=== PATIENT | male | born 1960 | race Caucasian/White ===

== ENCOUNTER 2024-09-29 08:30 | Emergency (ER) | payer OTHER, SELFPAY ==
--- NOTE | ~2024-09-29 | CT_ITS ---
EXAMINATION: CT abdomen pelvis w con DATE: 09/29/2024 09:32 INDICATION: Left lower abdominal pain TECHNIQUE: Computed tomography (CT) of the abdomen and pelvis was performed without intravenous contr ast. Automated exposure control and iterative reconstruction technique were employed. The dose-length product was 251.48 mGy-cm. COMPARISON: None FINDINGS: 2.1 x 1.5 cm nodular opacity in the basilar right lower lobe along a band of discoid atelectasis and with significant degenerative volume loss in the right lower lobe which would favor round atelectasis over neoplasm. Additional linear discoid atelectasis in the left lower lobe and lingula. Heart size is normal. No pericardial or pleural effusion. Subcentimeter hepatic cyst along the gallbladder fossa . Gallbladder, spleen, pancreas, bilateral adrenal glands and kidneys are normal. Prominent diverticu losis along the transverse and descending colon with focal wall thickening and inflammatory stranding at the distal descending colon consistent with diverticulitis. Small bowel and appendix are normal. Prostatomegaly. Small bilateral inguinal hernias containing fat on the right and fat as well as a bul ge of the otherwise normal bladder on the left. No abscess or free intraperitoneal gas or fluid. No p athologically enlarged abdominal or pelvic lymphadenopathy. Focal fatty atrophy versus intramuscular lipoma at the distal right gluteus medius muscle belly. Mild lumbar and lower thoracic spondylosis. IMPRESSION: 1. Radiographic uncomplicated diverticulitis at the distal descending colon. 2. 2.1 x 1.5 cm nodular opacity in the basilar right lower lobe with features most suggestive of roun d atelectasis although neoplasm cannot be absolutely excluded. Would recommend correlation with any p rior outside imaging if available or further evaluation with either PET/CT or 3 month follow-up low-d ose noncontrast chest CT. 3. Portion of the bladder bulges into the entrance of a small fat-containing left inguinal hernia wit h additional small fat-containing right inguinal hernia. Reviewed, dictated and finalized at location [facility]. IMPRESSION: 1. Radiographic uncomplicated diverticulitis at the distal descending colon. 2. 2.1 x 1.5 cm nodular opacity in the basilar right lower lobe with features m ost suggestive of round atelectasis although neoplasm cannot be absolutely excl uded. Would recommend correlation with any prior outside imaging if available o r further evaluation with either PET/CT or 3 month follow-up low-dose noncontra st chest CT. 3. Portion of the bladder bulges into the entrance of a small fat-containing le ft inguinal hernia with additional small fat-containing right inguinal hernia.
[2024-09-29 08:42] VITALS: BP 153/92; PULSE 85; RESP 18; TEMP 36.4; O2SAT 96
--- NOTE | 2024-09-29 08:52 | ED.ABDPAIN ---
HPI - Abdominal Pain General Chief Complaint: Abdominal Pain Stated Complaint: abdominal pain Time Seen by Provider: 09/29/24 08:44 Source: patient, RN notes reviewed and old records reviewed Mode of arrival: ambulatory Limitations: no limitations History of Present Illness HPI narrative: This is a 64 year old male who presents for evaluation of left lower abdominal pain. He states he is having intermittent sharp pain for 1 day. He denies having pain currently but he felt this pain when he was being triaged. His pain last 30 seconds. The pain woke him up from his sleep. He is not aware of any exacerbating factors. He is not taking any medication for pain. He denies any radiating. HE denies any associated nausea, vomiting, hematuria or fever. HE denies history of kidney stones or diverticulitis. He denies history of colonoscopy. He has not seen a doctor in 14 years. MD elicited complaint: abdominal pain Pain Consistency: intermittent Location: LLQ Quality: sharp Radiation: none Migration to: no migration Exacerbating factors: nothing Relieving factors: nothing Related Data Allergies Allergy/AdvReac Type Severity Reaction Status Date / Time No Known Allergies Allergy Mild Verified 09/29/24 08:59 PMFSH Past Medical History Medical History (Updated 09/29/24 @ 10:19 by Che Davila MD) Patient denies medical problems Surgical History Surgical History (Updated 09/29/24 @ 08:55 by Che Davila MD) No pertinent past surgical history Social History Social History (Updated 09/29/24 @ 08:55 by Che Davila MD) Alcohol intake: former Exam Const: General: no acute distress and alert Nutritional Appearance: well nourished Orientation/consciousness: patient oriented x3 HENMT: Head: normal to inspection Eyes: EOM: EOMs intact bilaterally Resp: Effort & Inspection: normal respiratory effort Auscultation: clear to auscultation bilaterally Cardio: Rate: regular rate Rhythm: regular rhythm Heart sounds: no murmurs GI: GI Palp: Yes Soft to palpation, Yes Tenderness to palpation present (GI) (LLQ), No Guarding due to palpation present (GI) and No Rigid due to palpation Auscultation: normal bowel sounds Back/Spine/Pelvis: Back: no CVA tenderness Neuro: General: patient oriented x3 and moves all extremities Cranial nerves: Yes Nystagmus not present Extrem: General: normal to inspection Psych: Mental Status: mental status grossly normal Affect: normal affect Attitude: cooperative Course Reevaluation(s) Reevaluation #1: I discussed with patient that CT shows diverticulitis. I also stressed that he needs to get established with PCP for evaluation with colonoscopy and he will need follow up for lung nodule. FAmily is at bedside as well. Date: 09/29/24 Time: 10:14 Vital Signs Vital signs: Vital Signs Temperature 97.6 F 09/29/24 08:42 Pulse Rate 85 09/29/24 08:42 Respiratory Rate 18 09/29/24 08:42 Blood Pressure 153/92 H 09/29/24 08:42 Pulse Oximetry 96 09/29/24 08:42 Oxygen Delivery Room Air 09/29/24 08:42 Temperature 97.6 F 09/29/24 08:42 Pulse Rate 85 09/29/24 08:42 Respiratory Rate 18 09/29/24 08:42 Blood Pressure 153/92 H 09/29/24 08:42 Pulse Oximetry 96 09/29/24 08:42 Oxygen Delivery Room Air 09/29/24 08:42 MDM - Abdominal Pain MDM Narrative Medical decision making narrative: labs , IV fluids and CT abdomen ordered Differential Diagnosis Differential diagnosis: Likely abdominal pain, calculus of kidney and diverticulitis Medical Records Attestation: I reviewed the patient's medical records. Lab Data Attestation: I reviewed the patient's lab results. 09/29/24 09:01 09/29/24 09:01 Labs: Lab Results 09/29/24 09/29/24 Range/Units 09:01 10:08 WBC 8.9 (4.5-10.0) K/mm3 RBC 4.84 (4.6-6.20) M/mm3 Hgb 15.5 (14.0-18.0) g/dL Hct 46.2 (42.0-52.0) % MCV 95.5 (80-100) fl MCH 32.0 (26-34) pg MCHC 33.5 (32-36) g/dl RDW 12.6 (11.5-14.5) % Plt Count 248 (150-375) k/mm3 MPV 8.8 (7.4-10.4) fl Immature Gran % (Auto) 0.6 H (0-0.5) % Neut % (Auto) 78.0 H (45.5-73.1) % Lymph % (Auto) 10.5 L (18.3-44.2) % [place] % (Auto) 9.9 H (2.6-8.5) % Eos % (Auto) 0.8 (0-4.4) % Baso % (Auto) 0.2 (0.2-1.2) % Lymph # (Auto) 0.94 (0.9-3.2) K/mm3 [place] # (Auto) 0.9 H (0.1-0.6) K/mm3 Eos # (Auto) 0.1 (0-0.3) K/mm3 Baso # (Auto) 0.0 (0.0-0.1) K/mm3 Abs Immat Gran (auto) 0.05 H (0.00-0.031) K/mm3 Absolute Neuts (auto) 7.0 H (1.3-6.7) K/mm3 Absolute Nucleated RBC 0.000 (0.0-0.012) K/mm3 Nucleated RBC % 0.0 (0.0-0.2) % Sodium 140 (137-145) mmol/L Potassium 4.8 (3.4-5.0) mmol/L Chloride 101 (98-107) mmol/L Carbon Dioxide 28 (22-30) mmol/L Anion Gap 11 (4-12) mmol/L BUN 11 (9-20) mg/dL Creatinine 0.68 L (0.7-1.3) mg/dL Estim Creat Clear Calc 88 ml/min Estimated GFR > 60 (59 - ) Glucose 108 (65-110) mg/dL Calcium 9.6 (8.4-10.2) mg/dL Total Bilirubin 0.7 (0.2-1.3) mg/dL AST 28 (17-59) U/L ALT 23 (6-50) U/L Alkaline Phosphatase 54 (38-126) U/L Total Protein 8.0 (6.3-8.2) g/dL Albumin 4.8 (3.5-5.1) g/dL Lipase 69 (23-300) U/L Urine Color Pending Urine Appearance Pending Urine pH Pending Ur Specific [place] Pending Urine Protein Pending Urine Glucose (UA) Pending Urine Ketones Pending Ur Blood (Man) Pending Urine Nitrate Pending Urine Bilirubin Pending Urine Urobilinogen Pending Leukocyte Esterase Rfl Pending Imaging Data Radiologist's impression: ITS Impressions Abdomen/Pelvis CT 09/29/24 09:55 IMPRESSION: 1. Radiographic uncomplicated diverticulitis at the distal descending colon. 2. 2.1 x 1.5 cm nodular opacity in the basilar right lower lobe with features most suggestive of round atelectasis although neoplasm cannot be absolutely excluded. Would recommend correlation with any prior outside imaging if available or further evaluation with either PET/CT or 3 month follow-up low-dose noncontrast chest CT. 3. Portion of the bladder bulges into the entrance of a small fat-containing left inguinal hernia with additional small fat-containing right inguinal hernia. Discharge Plan Discharge Clinical Impression: Incidental lung nodule, Enlarged prostate Diverticulitis large intestine Qualifiers: Diverticulitis bleeding: without bleeding Diverticulitis complication: without perforation or abscess Qualified Code(s): K57.32 - Diverticulitis of large intestine without perforation or abscess without bleeding Patient Disposition: Home Condition: Stable Instructions: Antibiotic Form, Diverticulitis (ED) Additional Instructions: It is recommended that you follow up with your primary care provider as you will need follow up on a lung nodule. You will also benefit from screening colonoscopy since you have never had one. Take antibiotics to completions for diverticulitis. If you develop fever, vomiting or worsening pain return to ER Patient Language: Icelandic Prescriptions: New amoxicillin-pot clavulanate 875-125 mg tablet 1 tablet PO Q12H Qty: 20 0RF hydrocodone-acetaminophen 5-325 mg tablet 1 tablet PO Q6H PRN (Reason: pain) Qty: 10 0RF Follow-up/Referrals: Carlos Pandya MD [Primary Care Provider] -
[2024-09-29] MEDS: SODIUM CHLORIDE 0.9% IV 1,000 ML 999 ML IV CONT (08:59)
[2024-09-29 09:06] LABS: Basophils Percent Auto 0.2 % (0.2-1.2); Eosinophils Absolute Auto 0.1 K/mm3 (0-0.3); Eosinophils Percent Auto 0.8 % (0-4.4); Hematocrit 46.2 % (42.0-52.0); Hemoglobin 15.5 g/dL (14.0-18.0); Immature Granulocyte Absolute 0.05 K/mm3 (0.00-0.031); Immature Granulocyte Percent A 0.6 % (0-0.5); Lymphocytes Absolute Auto 0.94 K/mm3 (0.9-3.2); Lymphocytes Percent Auto 10.5 % (18.3-44.2); Mean Corpuscular HGB Conc 33.5 g/dl (32-36); Mean Corpuscular Volume 95.5 fl (80-100); Mean Platelet Volume 8.8 fl (7.4-10.4); Monocytes Absolute Auto 0.9 K/mm3 (0.1-0.6); Monocytes Percent Auto 9.9 % (2.6-8.5); Platelet Count Result 248 k/mm3 (150-375); Red Blood Count 4.84 M/mm3 (4.6-6.20); Red Cell Distribution Width 12.6 % (11.5-14.5); White Blood Count 8.9 K/mm3 (4.5-10.0)
[2024-09-29 09:17] LABS: Alanine Aminotransferase 23 U/L (6-50); Albumin Level 4.8 g/dL (3.5-5.1); Alkaline Phosphatase 54 U/L (38-126); Anion Gap 11 mmol/L (4-12); Aspartate Amino Transferase 28 U/L (17-59); Bilirubin,Total 0.7 mg/dL (0.2-1.3); Blood Urea Nitrogen 11 mg/dL (9-20); Calcium 9.6 mg/dL (8.4-10.2); Carbon Dioxide 28 mmol/L (22-30); Chloride 101 mmol/L (98-107); Estimated CRCL calculation 88 ml/min; Estimated Glomerular Filt Rate > 60; Glucose 108 mg/dL (65-110); Lipase 69 U/L (23-300); Potassium 4.8 mmol/L (3.4-5.0); Sodium 140 mmol/L (137-145)
[2024-09-29 10:14] LABS: Add Urine Microscopic? NO; Appearance Urine Clear (Clear); Bilirubin Urine Negative (Negative); Blood Urine Negative (Negative); Color Urine Yellow (Yellow); Glucose Urine UA Negative (Negative); Ketones Urine Negative (Negative); Leukocyte Esterase Ur Negative LEU/UL (Negative); Nitrate Urine Negative (Negative); Protein Urine Negative (Negative); Specific Grav Ur 1.031 (1.001-1.035); Urobilinogen Urine 0.2 mg/dL (<2.0)
== END 2024-09-29 10:37 | disposition home or self-care (01) ==
PROVIDERS: Emergency Provider General Practice; PCP Family Medicine Adolescent Medicine
DX: K57.32 Diverticulitis of large intestine without perforation or abscess without bleeding (principal)
CPT/HCPCS: 36415; 74177; 80053; 81003; 83690; 85025; 96360; 99284; J7030; Q9967

== ENCOUNTER 2025-01-02 09:16 | Outpatient (CLI) | payer OTHER, SELFPAY ==
--- NOTE | ~2025-01-02 | CT_ITS ---
CT Scan of the Chest without Contrast: Clinical Indication: Right lower lobe nodule Technique: Contiguous sections were acquired throughout the chest without intravenous contrast. Dose reduction technique was used on this scan by utilizing automated exposure control and iterative recon struction technique. The dose-length product (DLP) was 169.66 mGy-cm. COMPARISON: 09/29/2024 Findings: There is no evidence of any significant mediastinal, hilar or axillary lymphadenopathy. The mediastin al soft tissues appear normal. There is no evidence of pleural or pericardial effusion. Stable nodularity present in the right lower lobe, likely related to chronic scarring. There is stabl e additional minimal scarring at the lingula and left lower lobe. Images through the upper abdomen reveal no abnormalities. Impression: Stable bibasilar scarring and stable nodularity at the right lower lobe. Reviewed, dictated and finalized at [facility]. Impression: Stable bibasilar scarring and stable nodularity at the right lower lobe.
== END 2025-01-02 09:17 | disposition home or self-care (01) ==
LOC: MICIMG 09:16
PROVIDERS: PCP Family Medicine Adolescent Medicine; Visit Provider Family Medicine Adolescent Medicine
DX: J98.4 Other disorders of lung (principal); R91.1 Solitary pulmonary nodule
CPT/HCPCS: 71250

== ENCOUNTER 2025-01-15 02:47 | Day surgery (SDC) | payer OTHER, SELFPAY ==
[2024-12-31 11:57] VITALS: BMI 21.9
[2025-01-15 08:41] VITALS: BP 115/74; PULSE 73; RESP 16; TEMP 36.3; O2SAT 100; BMI 22.3
[2025-01-15] MEDS: LACTATED RINGERS 1,000 ML 150 ML IV CONT (08:51)
--- NOTE | 2025-01-15 09:23 | PM.HPGS ---
History of Present Illness History of Present Illness Consent: Risks, benefits, and alternatives have been discussed and questions answered. Patient agrees to proceed with procedure. Chief complaint: Other fecal abnormalities Narrative: Eriberto Arredondo is a 64 year old male here for first colonoscopy, had + cologuard Review of Systems Review of Systems: All systems reviewed & are unremarkable except as noted in HPI and below PMFSH Past Medical History Medical History (Updated 01/15/25 @ 09:23 by Andrew Gale MD) Positive colorectal cancer screening using Cologuard test Patient denies medical problems Surgical History Surgical History (Updated 10/08/24 @ 17:23 by Carlos Pandya MD) History of neck surgery skin cyst removed No pertinent past surgical history Family History Family History (Updated 10/08/24 @ 17:22 by Carlos Pandya MD) Father Hypertension Diabetes mellitus Skin cancer Mother Thyroid disease Social History Social History (Updated 09/29/24 @ 08:55 by Che Davila MD) Smoking status: Former smoker Tobacco type: smokeless tobacco Smokeless tobacco user: chewing tobacco Alcohol intake: former Living arrangements: with family Spiritual care concerns: No Meds Home Medications and Allergies Home Medications ?Medication ?Instructions ?Recorded ?Confirmed ?Type No Home Medications 12/31/24 12/31/24 History Allergies Allergy/AdvReac Type Severity Reaction Status Date / Time No Known Allergies Allergy Mild Verified 01/15/25 08:40 Vital Signs Vital Signs - 24 hr 01/15/25 08:41 Temperature 97.4 F L Pulse Rate 73 Respiratory Rate 16 Blood Pressure 115/74 Pulse Oximetry 100 Oxygen Delivery Room Air Exam Const: General: comfortable and no acute distress HENMT: Face/Nose/Sinus: Normal nares present Eyes: General: appearance normal, both eyes and all related structures Neck: Neck: no JVD Resp: Auscultation: clear to auscultation bilaterally Cardio: Rate: regular rate Rhythm: regular rhythm GI: Inspection: non-distended GI Palp: Yes Soft to palpation Skin: General skin exam: normal color Neuro: Speech: normal speech Extrem: General: normal to inspection Psych: Mental Status: mental status grossly normal Assessment and Plan Assessment and plan (1) Positive colorectal cancer screening using Cologuard test: Code(s): R19.5 - Other fecal abnormalities Status: Acute Assessment and Plan: colonoscopy
--- NOTE | 2025-01-15 09:24 | WPDANESEPPF ---
Anes - Initial Pre Proc Eval Procedure: Operation Date: 01/15/25 09:30 Proposed Procedures p Colonoscopy - Andrew Gale MD Date/Time: 01/15/25 09:24 Surgeon: Andrew Gale MD Pre Op Diagnosis: Other fecal abnormalities Patient Data Age: 64 Gender: M Height: 1.7 m Weight: 64.7 kg Last Vital Signs Temp 36.3 C L 01/15/25 08:41 Pulse 73 01/15/25 08:41 Resp 16 01/15/25 08:41 BP 115/74 01/15/25 08:41 Pulse Ox 100 01/15/25 08:41 O2 Del Method Room Air 01/15/25 08:41 Allergies Allergy/AdvReac Type Severity Reaction Status Date / Time No Known Allergies Allergy Mild Verified 01/15/25 08:40 Home Medications ?Medication ?Instructions ?Recorded ?Confirmed ?Type No Home Medications 12/31/24 12/31/24 History Patient hx anesthesia problems: none Family hx anesthesia problems: none Results Review: All pre-operative results and documents have been reviewed as part of the pre-operative evaluation. COUNTS INCLUDE 234 BEDS AT THE [facility] Past Medical History Medical History Positive colorectal cancer screening using Cologuard test Patient denies medical problems Surgical History Surgical History History of neck surgery skin cyst removed No pertinent past surgical history Family History Family History Father Hypertension Diabetes mellitus Skin cancer Mother Thyroid disease Social History Social History Smoking status: Former smoker Tobacco type: smokeless tobacco Smokeless tobacco user: chewing tobacco Alcohol intake: former Living arrangements: with family Spiritual care concerns: No Anes - Eval Final PreProcedure Day of Procedure 01/15/25 09:24 Patient weight: normal Heart: regular rate and rhythm Lungs: clear to auscultation Airway: Mallampati scale class II Neurological: alert and oriented Last oral intake: >/= 8 hours ASA classification: II Emergent: no Anesthetic plan: proceed Anesthesia type and monitoring: general GIVS and standard monitoring Results Review: All pre-operative results and documents have been reviewed as part of the pre-operative evaluation. Informed Consent: The patient's anesthetic plan and its attendant risks and benefits were discussed with the patient/family/POA. Questions were solicited and answers provided to the satisfaction of the patient/family/POA.
--- NOTE | 2025-01-15 09:37 | S_PTH ---
PATIENT: Eriberto Arredondo LOC: [facility]#:[id number] AGE/SX: 64/M ROOM: RE01/15/[address]: Andrew Gale MD : 1960 BED: DIS: 01/15/2025 SPEC #: [id number] RECD: 01/15/25 12:08 STATUS: LYNNETTE MIRZA #: [id number] LATOYA: 01/15/25 09:[address]: Andrew Gale DEPT: [facility] Surgical RECD BY: Emelyn Cazares ENTERED: 01/15/25 12:09 SP TYPE: Surgical OTHR DR: Carlos Pandya MD Tissues: A - Colon Polypectomy B - Colon Polypectomy Procedures: Hematoxylin and Eosin Stain Gross and Microscopic Level 4
[2025-01-15 09:39] VITALS: BP 112/70; PULSE 74; RESP 16; O2SAT 100
[2025-01-15 09:49] VITALS: BP 117/79; PULSE 73; RESP 16; O2SAT 99
[2025-01-15 09:59] VITALS: BP 123/64; PULSE 71; RESP 16; O2SAT 100
== END 2025-01-15 10:11 | disposition home or self-care (01) ==
PROVIDERS: PCP Family Medicine Adolescent Medicine; Visit Provider Internal Medicine Gastroenterology
PROC: 0DJD8ZZ Inspection of Lower Intestinal Tract, Via Natural or Artificial Opening Endoscopic (ICD-10-PCS; CPT 45378; principal; 2025-01-15 09:30)
DX: R19.5 Other fecal abnormalities (principal); K57.30 Diverticulosis of large intestine without perforation or abscess without bleeding; D12.2 Benign neoplasm of ascending colon; D12.3 Benign neoplasm of transverse colon; K64.8 Other hemorrhoids; F17.220 Nicotine dependence, chewing tobacco, uncomplicated
CPT/HCPCS: 45385; 88305; J2003; J2704; J7120